=== PATIENT | female | born 1930 | race Caucasian/White ===

== ENCOUNTER 2016-10-18 20:33 | Emergency (ER) | payer OTHER ==
[~2016-10-18] VITALS: Ht 172.7 cm; Wt 49.9 kg
[~2016-10-18 20:33] MED LIST: ASCORBIC ACID500 M3 PO; ASPIR 8181 M1 PO; B COMPLETE1 EACH PO; B COMPLEX #11 EACH PO; BENADRYL50 MG PO; CALCITONIN-SAL3.8 ML NS; CALCIUM 500 +1 EACH PO; CALCIUM MAGNES1 EACH PO; CELEBREX100 MG PO; CENTRUM COMPLE1 EACH PO; CENTRUM SILVER1 EAC3 PO; CENTRUM SILVER1 EAC4 PO; CO Q-1050 MG PO; CORAL CALCIUM1 EAC2 PO; ENDOCET 5-3251 EACH PO; FIBER THERAPY0.52 GM PO; FIBER500 MG PO; FIBERCON625 MG PO; FISH OIL 1,0001 EAC7 PO; FISH OIL OMEGA1 EACH PO; FISH OIL SOFTG1 EAC2 PO; FLAX SEED OIL1 EACH PO; FLAXSEED OIL1000 M4 PO; FLAXSEED340 GM PO; FOLIC ACID0.4 MG PO; GAS FREE125 MG PO; GLUCOSAMINE &1 EAC1 PO; HYDROCODON-ACE1 EAC7 PO; HYDROXYCHLOROQ200 MG PO; LEVOTHYROXINE100 MCG PO; LEVOXYL100 MCG PO; LOMOTIL TABLET1 EACH PO; MACROBID100 MG PO; MAGNESIUM250 MG PO; MIACALCIN4 ML NS; MIRALAX17 GM PO; MIRALAX255 GM PO; OMEPRAZOLE40 M1 PO; OXYBUTYNIN CHLOR5 MG PO; PEPCID40 MG PO; PLAQUENIL200 MG PO; PRED FORTE100 DROP/5 LEFT EYE; PRILOSEC40 MG PO; SF56 GM DT; SLEEP AID25 M1 PO; TRAMADOL HCL50 MG PO; TYLENOL PM1 CAPLET PO; Tylenol Extra Streng PO; VITAMIN D-32000 UNI2 PO; VITAMIN D31000 UNI2 PO; ZINC30 MG PO
[2016-10-18] MEDS ORDERED: COLACE100 MG PO (23:03)
[2016-10-18] MEDS ORDERED: VICODIN 5-3001 EACH PO (23:03)
[2016-10-18 23:40] VITALS: BP 116/79
== END 2016-10-18 23:49 | disposition home or self-care (01) ==
LOC: EME → EDBD 20:33 → EME 23:49
DX: S22.20XA Unspecified fracture of sternum, initial encounter for closed fracture (principal); W17.89XA Other fall from one level to another, initial encounter; Z88.2 Allergy status to sulfonamides
CPT/HCPCS: 71250; 93005; 99281; 99284

== ENCOUNTER 2017-05-15 17:18 | Emergency (ER) | payer OTHER ==
[~2017-05-15] VITALS: Ht 167.6 cm; Wt 47.0 kg
[~2017-05-15 17:18] MED LIST changes: +COLACE100 MG PO; +VICODIN 5-3001 EACH PO
[2017-05-15 17:52] LABS: EOSINOPHIL (%) 0.2 % (0-5); HEMATOCRIT 31.8 % (36.0-46.0); IMMATURE GRANULOCYTE (%) 0.2 % (0.0-0.7); INSTRUMENT ABS NEUTROPHIL CT 3.8 K/uL; LYMPHOCYTE COUNT 0.2 K/uL (1.0-2.8); MCH 33.1 PG (29.0-34.0); MCV 100.3 FL (83-99); MEAN PLAT.VOLUME 9.4 uM^3 (9.5-12.4); MONOCYTE (%) 6.3 % (3-12); MONOCYTE COUNT 0.3 K/uL (0-0.8); NEUTROPHIL (%) 87.5 % (45-76); NEUTROPHIL COUNT 3.8 K/uL (1.8-6.4); PLATELET COUNT 134 K/uL (156-360); RBC DIS.WIDTH-CV 14.6 % (11.8-14.6); RBC DIS.WIDTH-SD 53.9 % (39-53); RED BLOOD COUNT 3.17 M/uL (3.80-5.20); WHITE BLOOD COUNT 4.3 K/uL (4.1-10.2)
[2017-05-15 17:57] LABS: PROTHROMBIN TIME 10.6 SEC (10.2-12.9)
[2017-05-15 17:59] LABS: PTT 26.5 SEC (25-37)
[2017-05-15 18:00] LABS: CHLORIDE 99 mEq/L (99-109); POTASSIUM 4.4 mEq/L (3.7-5.4); SODIUM 134 mEq/L (136-147)
[2017-05-15 18:02] LABS: GLUCOSE 104 mg/dL (70-99)
[2017-05-15 18:03] LABS: ANION GAP 11 MEQ/L (2-14)
[2017-05-15 18:04] LABS: TOTAL BILIRUBIN 0.3 mg/dL (0.0-1.0)
[2017-05-15 18:06] LABS: ALKALINE PHOSPHATASE 64 IU/L (3-129); GFR ESTIMATE (CALCULATED) > 59 mL/min/
[2017-05-15 18:07] LABS: UREA NITROGEN (BUN) 16 mg/dL (9-23)
[2017-05-15 18:08] LABS: DIRECT BILIRUBIN 0.1 mg/dL (0.0-0.3)
[2017-05-15 18:09] LABS: LIPASE 5 U/L (1.0-51.0)
[2017-05-15 18:12] LABS: TROP-I INTERPRETATION NEGATIVE; TROPONIN-I < 0.01 ng/mL (0.0-0.30)
[2017-05-15 19:09] LABS: ADD MIUA? YES; BILIRUBIN NEGATIVE; BLOOD NEGATIVE; COLOR AMBER ((YELLOW)); GLUCOSE (STRIP) NEGATIVE; KETONES NEGATIVE; LEUKOCYTES NEGATIVE; NITRITE NEGATIVE; PROTEIN (STRIP) 30; SPECIFIC GRAVITY 1.016 (1.000-1.030); UROBILINOGEN 0.2 MG/DL (0.2-1.0)
[2017-05-15 19:16] LABS: BACTERIA NONE SEEN /HPF; EPITHELIAL CELLS RARE /HPF; MUCUS TRACE /LPF; RED BLOOD CELLS 0-5 /HPF (0-5); UCUL ADDED? NO; WHITE BLOOD CELLS 0-5 /HPF (0-5)
[2017-05-15 22:42] VITALS: BP 113/70
== END 2017-05-15 22:44 | disposition home or self-care (01) ==
LOC: EME 17:18
PROVIDERS: Emergency Medicine
DX: R10.10 Upper abdominal pain, unspecified (principal); K44.9 Diaphragmatic hernia without obstruction or gangrene; E03.9 Hypothyroidism, unspecified; Z90.49 Acquired absence of other specified parts of digestive tract; Z87.891 Personal history of nicotine dependence; Z88.2 Allergy status to sulfonamides
CPT/HCPCS: 74177; 80048; 80076; 81003; 83690; 83880; 84484; 85025; 85610; 85730; 99281; 99284; J7030

== ENCOUNTER 2018-01-17 22:29 | Inpatient (IN) | payer OTHER ==
[~2018-01-17] VITALS: Ht 162.6 cm; Wt 51.0 kg
[2018-01-17 23:24] LABS: HEMATOCRIT 34.1 % (36.0-46.0); HEMOGLOBIN 11.9 G/DL (11.9-15.5); MCH 33.9 PG (29.0-34.0); MCHC 34.9 G/DL (30.0-36.0); MCV 97.2 FL (83-99); PLATELET COUNT 116 K/uL (156-360); RBC DIS.WIDTH-CV 14.6 % (11.8-14.6); RBC DIS.WIDTH-SD 52.1 % (39-53); RED BLOOD COUNT 3.51 M/uL (3.80-5.20); WHITE BLOOD COUNT 5.1 K/uL (4.1-10.2)
[2018-01-17 23:39] LABS: ALBUMIN 4.4 g/dL (3.2-4.8); CHLORIDE 100 mEq/L (99-109); POTASSIUM 3.9 mEq/L (3.7-5.4); SODIUM 139 mEq/L (136-147)
[2018-01-17 23:42] LABS: GLUCOSE 174 mg/dL (70-99); TOTAL PROTEIN 6.9 g/dL (6.4-8.3)
[2018-01-17 23:44] LABS: TOTAL BILIRUBIN 0.3 mg/dL (0.0-1.0)
[2018-01-17 23:45] LABS: ALKALINE PHOSPHATASE 72 IU/L (3-129)
[2018-01-17 23:46] LABS: CREATININE 0.8 mg/dL (0.6-1.3); GFR ESTIMATE (CALCULATED) > 59 mL/min/
[2018-01-17 23:47] LABS: AST (GOT) 28 IU/L (2-34); DIRECT BILIRUBIN 0.1 mg/dL (0.0-0.3); UREA NITROGEN (BUN) 25 mg/dL (9-23)
[2018-01-17 23:48] LABS: ALT (GPT) 27 IU/L (3-49)
[2018-01-17 23:49] LABS: LIPASE 55 U/L (1.0-51.0)
[2018-01-18 00:38] LABS: TROP-I INTERPRETATION NEGATIVE; TROPONIN-I < 0.01 ng/mL (0.0-0.30)
[2018-01-18] MEDS ORDERED: TYLENOL REGULA325 MG PO (07:23)
[2018-01-18] MEDS ORDERED: CALCIUM 600 +1 EAC1 PO (07:23)
[2018-01-18] MEDS ORDERED: NAMENDA5 MG PO (07:24)
[2018-01-18] MEDS ORDERED: B-COMPLEX-VITA1 EACH PO (07:24)
[2018-01-18] MEDS ORDERED: ASCORBIC ACID500 M3 PO (07:24)
[2018-01-18] MEDS ORDERED: CENTRUM SILVER1 EAC3 PO (07:24)
[2018-01-18] MEDS ORDERED: SYNTHROID100 MCG PO (07:25)
[2018-01-18] MEDS ORDERED: DITROPAN5 MG PO (07:25)
[2018-01-18] MEDS ORDERED: PROTONIX40 MG PO (07:25)
[2018-01-18] MEDS ORDERED: PREDNISONE1 MG PO (07:25)
[2018-01-18] MEDS ORDERED: FISH OIL 1,2001 EAC4 PO (07:26)
[2018-01-18] MEDS ORDERED: LOMOTIL TABLET1 EACH PO (07:26)
[2018-01-18] MEDS ORDERED: FLAX OIL1000 MG PO (07:26)
[2018-01-18] MEDS ORDERED: COLACE100 MG PO (07:27)
[2018-01-18] MEDS ORDERED: VITAMIN B-650 MG PO (07:28)
[2018-01-18 09:27] VITALS: BP 133/79
[2018-01-18 19:39] LABS: COMMENTS - BLOOD GASES A+C+; DEVICE VENT; FI02 60 %; MECHANICAL RATE 16 resp/min; MODE A/C; SITE RR; TIDAL VOLUME 500 ML; TOTAL RESP RATE 16 resp/min
[2018-01-18 19:40] LABS: BICARBONATE 27.7 mEq/L (22-26); CARBOXY HGB 1.2 % (0-5); METHEMOGLOBIN 1.1 % (0-1.5); PCO2 48 mm Hg (35-45); PEEP 8 CM/H20; PO2 343 mm Hg (80-100); pH 7.37 (7.35-7.45)
[2018-01-18 19:41] LABS: BASE EXCESS 1.7 mEq/L (-3 to +3)
[2018-01-18 20:30] VITALS: BP 131/89
[2018-01-18 21:01] VITALS: BP 113/77
[2018-01-18 22:01] VITALS: BP 109/65
[2018-01-18 22:20] LABS: HEMATOCRIT 41.4 % (36.0-46.0); HEMOGLOBIN 13.4 G/DL (11.9-15.5); MCH 32.7 PG (29.0-34.0); MCHC 32.4 G/DL (30.0-36.0); RBC DIS.WIDTH-CV 14.6 % (11.8-14.6); RBC DIS.WIDTH-SD 54.9 % (39-53)
[2018-01-18 22:22] LABS: CHLORIDE 98 MEQ/L (99-109); CREATININE 0.8 MG/DL (0.6-1.3); GFR ESTIMATE (CALCULATED) > 59 mL/min/; GLUCOSE 150 mg/dL (70-99); SODIUM 134 MEQ/L (136-147); TRIGLYCERIDES 50 MG/DL (Normal: <150); UREA NITROGEN (BUN) 22 mg/dL (9-23)
[2018-01-18 22:51] LABS: ABS NEUTROPHIL COUNT 7.3; ANISOCYTOSIS 1+; BAND NEUTROPHILS 22.2 % (0-8.0); EOSINOPHIL ABS CT 0; LYMPHOCYTES 3.7 % (15.0-45.0); MACROCYTES 1+; MONOCYTES 4.6 % (0-9.0); PLAT.SUFFICIENCY VERY DECREASED; SEG.NEUTROPHILS 69.5 % (46.0-76.0)
[2018-01-18 22:54] LABS: PLATELET COUNT 53 K/uL (156-360)
[2018-01-18 23:01] VITALS: BP 103/64
[2018-01-19] VITALS (23 sets, daily range): BP systolic 94–128; BP diastolic 52–76
[2018-01-19 05:23] LABS: MCH 33.9 PG (29.0-34.0); MCHC 34.1 G/DL (30.0-36.0); MCV 99.4 FL (83-99); RBC DIS.WIDTH-CV 14.8 % (11.8-14.6); RBC DIS.WIDTH-SD 54.2 % (39-53); WHITE BLOOD COUNT 7.1 K/uL (4.1-10.2)
[2018-01-19 05:25] LABS: HEMOGLOBIN 10.9 G/DL (11.9-15.5); PLATELET COUNT 135 K/uL (156-360); RED BLOOD COUNT 3.22 M/uL (3.80-5.20)
[2018-01-19 05:42] LABS: COMMENTS - BLOOD GASES C+NA; DEVICE 980 VENT; FI02 40 %; INSPIRATION TIME 0.9 seconds; MECHANICAL RATE 16 resp/min; MODE AC VC+; SITE LR; TOTAL RESP RATE 22 resp/min
[2018-01-19 05:43] LABS: TIDAL VOLUME 400 ML
[2018-01-19 05:43] LABS: ALBUMIN 3.1 G/DL (3.2-4.8); ALKALINE PHOSPHATASE 38 IU/L (3-129); ALT (GPT) 49 IU/L (3-49); AST (GOT) 45 IU/L (2-34); C-REACTIVE PROTEIN 73.2 MG/L (0-10); CHLORIDE 101 MEQ/L (99-109); CREATININE 0.7 MG/DL (0.6-1.3); GFR ESTIMATE (CALCULATED) > 59 mL/min/; MAGNESIUM 2.2 mg/dl (1.3-2.7); PHOSPHORUS 3.1 mg/dL (2.5-4.9); SODIUM 138 MEQ/L (136-147); TOTAL BILIRUBIN 0.4 MG/DL (0.0-1.0); TOTAL PROTEIN 4.9 G/DL (6.4-8.3); UREA NITROGEN (BUN) 23 mg/dL (9-23)
[2018-01-19 05:44] LABS: GLUCOSE 112 mg/dL (70-99)
[2018-01-19 05:45] LABS: CARBOXY HGB 2.2 % (0-5); PCO2 37 mm Hg (35-45); PEEP 8 CM/H20; PO2 188 mm Hg (80-100); pH 7.46 (7.35-7.45)
[2018-01-19 05:46] LABS: BASE EXCESS 2.5 mEq/L (-3 to +3); BICARBONATE 26.3 mEq/L (22-26); METHEMOGLOBIN 0.4 % (0-1.5)
[2018-01-19 06:36] LABS: BASOPHIL (%) 0.1 % (0-1); EOSINOPHIL (%) 0 % (0-5); IMMATURE GRANULOCYTE (%) 0.1 % (0.0-0.7); LYMPHOCYTE (%) 2.4 % (15-42); LYMPHOCYTE COUNT 0.2 K/uL (1.0-2.8); MONOCYTE (%) 6.7 % (3-12); MONOCYTE COUNT 0.5 K/uL (0-0.8); NEUTROPHIL (%) 90.7 % (45-76); NEUTROPHIL COUNT 6.4 K/uL (1.8-6.4)
[2018-01-19 06:37] LABS: PLAT.SUFFICIENCY DECREASED
[2018-01-19 07:42] LABS: THYROTROPIN (TSH) 1.3 MIU/L (0.4-5.5)
[2018-01-20] VITALS (14 sets, daily range): BP systolic 112–129; BP diastolic 63–75
[2018-01-20 10:04] LABS: CHLORIDE 103 mEq/L (99-109)
[2018-01-20 10:05] LABS: MAGNESIUM 1.9 mg/dL (1.3-2.7); POTASSIUM 3.5 mEq/L (3.7-5.4); SODIUM 138 mEq/L (136-147)
[2018-01-20 10:07] LABS: GLUCOSE 85 mg/dL (70-99)
[2018-01-20 10:10] LABS: CREATININE 0.5 mg/dL (0.6-1.3); GFR ESTIMATE (CALCULATED) > 59 mL/min/; PHOSPHORUS 1.8 mg/dL (2.5-4.9)
[2018-01-20 10:11] LABS: UREA NITROGEN (BUN) 18 mg/dL (9-23)
[2018-01-20 10:59] LABS: BASOPHIL (%) 0.1 % (0-1); EOSINOPHIL (%) 0 % (0-5); HEMATOCRIT 29.2 % (36.0-46.0); IMMATURE GRANULOCYTE (%) 0.3 % (0.0-0.7); LYMPHOCYTE COUNT 0.2 K/uL (1.0-2.8); MCH 33.6 PG (29.0-34.0); MCHC 34.2 G/DL (30.0-36.0); MONOCYTE (%) 5.5 % (3-12); MONOCYTE COUNT 0.4 K/uL (0-0.8); NEUTROPHIL (%) 91.1 % (45-76); NEUTROPHIL COUNT 6.9 K/uL (1.8-6.4); PLATELET COUNT 134 K/uL (156-360); RBC DIS.WIDTH-CV 15.2 % (11.8-14.6); RBC DIS.WIDTH-SD 54.1 % (39-53); RED BLOOD COUNT 2.98 M/uL (3.80-5.20); WHITE BLOOD COUNT 7.6 K/uL (4.1-10.2)
[2018-01-21] VITALS (21 sets, daily range): BP systolic 62–123; BP diastolic 44–81
[2018-01-21 05:56] LABS: BASOPHIL (%) 0.1 % (0-1); EOSINOPHIL (%) 0 % (0-5); HEMATOCRIT 32.9 % (36.0-46.0); HEMOGLOBIN 10.6 G/DL (11.9-15.5); IMMATURE GRANULOCYTE (%) 0.6 % (0.0-0.7); LYMPHOCYTE (%) 4.2 % (15-42); LYMPHOCYTE COUNT 0.5 K/uL (1.0-2.8); MCH 32.2 PG (29.0-34.0); MCHC 32.2 G/DL (30.0-36.0); MONOCYTE (%) 4.5 % (3-12); MONOCYTE COUNT 0.5 K/uL (0-0.8); NEUTROPHIL (%) 90.6 % (45-76); NEUTROPHIL COUNT 9.9 K/uL (1.8-6.4); RBC DIS.WIDTH-CV 15.2 % (11.8-14.6); RBC DIS.WIDTH-SD 56.4 % (39-53); RED BLOOD COUNT 3.29 M/uL (3.80-5.20); WHITE BLOOD COUNT 10.9 K/uL (4.1-10.2)
[2018-01-21 06:19] LABS: PLATELET COUNT 180 K/uL (156-360)
[2018-01-21 06:20] LABS: CHLORIDE 101 MEQ/L (99-109); CREATININE 0.5 MG/DL (0.6-1.3); GFR ESTIMATE (CALCULATED) > 59 mL/min/; GLUCOSE 75 mg/dL (70-99); MAGNESIUM 2.1 mg/dl (1.3-2.7); PHOSPHORUS 2.5 mg/dL (2.5-4.9); POTASSIUM 3.8 MEQ/L (3.7-5.4); PREALBUMIN 10.4 mg/dL (10-40); SODIUM 138 MEQ/L (136-147)
[2018-01-21 06:21] LABS: UREA NITROGEN (BUN) 29 mg/dL (9-23)
[2018-01-22] VITALS (14 sets, daily range): BP systolic 111–145; BP diastolic 60–82
[2018-01-22 06:03] LABS: CHLORIDE 106 MEQ/L (99-109); CREATININE 0.4 MG/DL (0.6-1.3); GFR ESTIMATE (CALCULATED) > 59 mL/min/; MAGNESIUM 2.2 mg/dl (1.3-2.7); PHOSPHORUS 2.3 mg/dL (2.5-4.9); POTASSIUM 4.2 MEQ/L (3.7-5.4); SODIUM 139 MEQ/L (136-147); UREA NITROGEN (BUN) 33 mg/dL (9-23)
[2018-01-22 06:14] LABS: GLUCOSE 162 mg/dL (70-99)
[2018-01-23 03:36] VITALS: BP 124/63
[2018-01-23 07:17] LABS: BASOPHIL (%) 0.2 % (0-1); EOSINOPHIL (%) 0.2 % (0-5); HEMATOCRIT 26.8 % (36.0-46.0); HEMOGLOBIN 9.3 G/DL (11.9-15.5); IMMATURE GRANULOCYTE (%) 2.1 % (0.0-0.7); LYMPHOCYTE (%) 5.2 % (15-42); LYMPHOCYTE COUNT 0.3 K/uL (1.0-2.8); MCH 33.7 PG (29.0-34.0); MCHC 34.7 G/DL (30.0-36.0); MCV 97.1 FL (83-99); MONOCYTE (%) 7.7 % (3-12); MONOCYTE COUNT 0.5 K/uL (0-0.8); NEUTROPHIL (%) 84.6 % (45-76); NEUTROPHIL COUNT 5.2 K/uL (1.8-6.4); PLATELET COUNT 158 K/uL (156-360); RBC DIS.WIDTH-SD 52.9 % (39-53); RED BLOOD COUNT 2.76 M/uL (3.80-5.20); WHITE BLOOD COUNT 6.1 K/uL (4.1-10.2)
[2018-01-23 07:40] LABS: CHLORIDE 108 MEQ/L (99-109); CREATININE 0.3 MG/DL (0.6-1.3); GFR ESTIMATE (CALCULATED) > 59 mL/min/; GLUCOSE 126 mg/dL (70-99); MAGNESIUM 1.9 mg/dl (1.3-2.7); PHOSPHORUS 1.7 mg/dL (2.5-4.9); SODIUM 141 MEQ/L (136-147); UREA NITROGEN (BUN) 26 mg/dL (9-23)
[2018-01-23 07:41] LABS: POTASSIUM 3.3 MEQ/L (3.7-5.4)
[2018-01-23 11:58] VITALS: BP 138/70
[2018-01-23 15:41] VITALS: BP 155/76
[2018-01-23 19:19] VITALS: BP 132/73
[2018-01-23 23:25] VITALS: BP 121/61
[2018-01-24 03:34] VITALS: BP 138/76
[2018-01-24 06:15] LABS: BASOPHIL (%) 0.4 % (0-1); EOSINOPHIL COUNT 0.1 K/uL (0-0.3); HEMOGLOBIN 10.2 G/DL (11.9-15.5); IMMATURE GRANULOCYTE (%) 4.1 % (0.0-0.7); LYMPHOCYTE (%) 4.4 % (15-42); LYMPHOCYTE COUNT 0.3 K/uL (1.0-2.8); MCH 32.8 PG (29.0-34.0); MCV 96.5 FL (83-99); MONOCYTE COUNT 0.6 K/uL (0-0.8); NEUTROPHIL (%) 82.1 % (45-76); NEUTROPHIL COUNT 5.6 K/uL (1.8-6.4); NRBC (%) 0.3 /100 WBC (0-0); PLATELET COUNT 150 K/uL (156-360); RBC DIS.WIDTH-CV 14.9 % (11.8-14.6); RBC DIS.WIDTH-SD 52.5 % (39-53); RED BLOOD COUNT 3.11 M/uL (3.80-5.20); WHITE BLOOD COUNT 6.9 K/uL (4.1-10.2)
[2018-01-24 06:34] LABS: ALBUMIN 2.3 G/DL (3.2-4.8); ALBUMIN 2.4 G/DL (3.2-4.8); ALKALINE PHOSPHATASE 57 IU/L (3-129); ALKALINE PHOSPHATASE 58 IU/L (3-129); CHLORIDE 105 MEQ/L (99-109); CHLORIDE 106 MEQ/L (99-109); CREATININE 0.3 MG/DL (0.6-1.3); DIRECT BILIRUBIN 0.1 mg/dL (0.0-0.3); GFR ESTIMATE (CALCULATED) > 59 mL/min/; GLUCOSE 99 mg/dL (70-99); MAGNESIUM 1.9 mg/dl (1.3-2.7); POTASSIUM 3.4 MEQ/L (3.7-5.4); POTASSIUM 3.5 MEQ/L (3.7-5.4); PREALBUMIN 13.9 mg/dL (10-40); SODIUM 138 MEQ/L (136-147); SODIUM 141 MEQ/L (136-147); TOTAL BILIRUBIN 0.4 MG/DL (0.0-1.0); TRIGLYCERIDES 130 MG/DL (Normal: <150); UREA NITROGEN (BUN) 19 mg/dL (9-23)
[2018-01-24 06:37] LABS: ALT (GPT) 115 IU/L (3-49); AST (GOT) 77 IU/L (2-34); PHOSPHORUS 2.4 mg/dL (2.5-4.9); TOTAL PROTEIN 4.1 G/DL (6.4-8.3)
[2018-01-24 06:38] LABS: ALT (GPT) 116 IU/L (3-49); AST (GOT) 78 IU/L (2-34); TOTAL PROTEIN 4.1 G/DL (6.4-8.3)
[2018-01-24 07:23] VITALS: BP 142/79
[2018-01-24 15:27] VITALS: BP 120/63
[2018-01-24 19:26] VITALS: BP 123/64
[2018-01-24 21:59] VITALS: BP 120/66
[2018-01-24 23:22] VITALS: BP 128/67
[2018-01-25 03:28] VITALS: BP 112/52
[2018-01-25 06:32] LABS: CHLORIDE 107 MEQ/L (99-109); CREATININE 0.3 MG/DL (0.6-1.3); GFR ESTIMATE (CALCULATED) > 59 mL/min/; GLUCOSE 114 mg/dL (70-99); MAGNESIUM 2.1 mg/dl (1.3-2.7); PHOSPHORUS 2.4 mg/dL (2.5-4.9); POTASSIUM 3.6 MEQ/L (3.7-5.4); SODIUM 139 MEQ/L (136-147); UREA NITROGEN (BUN) 23 mg/dL (9-23)
[2018-01-25 07:26] VITALS: BP 124/64
[2018-01-25 11:15] VITALS: BP 130/67
[2018-01-25 15:51] VITALS: BP 114/57
[2018-01-25 20:00] VITALS: BP 119/63
[2018-01-26 04:05] VITALS: BP 120/63
[2018-01-26 07:42] LABS: CHLORIDE 105 MEQ/L (99-109); CREATININE 0.3 MG/DL (0.6-1.3); GFR ESTIMATE (CALCULATED) > 59 mL/min/; GLUCOSE 106 mg/dL (70-99); PHOSPHORUS 3.1 mg/dL (2.5-4.9); POTASSIUM 4.3 MEQ/L (3.7-5.4); SODIUM 138 MEQ/L (136-147); UREA NITROGEN (BUN) 25 mg/dL (9-23)
[2018-01-26 08:39] VITALS: BP 129/68
[2018-01-26 15:42] VITALS: BP 127/65
[2018-01-26 19:46] VITALS: BP 143/64
[2018-01-27 01:43] VITALS: BP 128/73
[2018-01-27 06:33] LABS: CHLORIDE 103 MEQ/L (99-109); CREATININE 0.3 MG/DL (0.6-1.3); GFR ESTIMATE (CALCULATED) > 59 mL/min/; GLUCOSE 119 mg/dL (70-99); MAGNESIUM 1.9 mg/dl (1.3-2.7); PHOSPHORUS 3.4 mg/dL (2.5-4.9); POTASSIUM 4.7 MEQ/L (3.7-5.4); SODIUM 135 MEQ/L (136-147); UREA NITROGEN (BUN) 24 mg/dL (9-23)
[2018-01-27 07:59] VITALS: BP 123/66
[2018-01-27 15:10] VITALS: BP 129/69
[2018-01-28 00:19] VITALS: BP 121/65
[2018-01-28 06:13] LABS: BASOPHIL (%) 0.1 % (0-1); EOSINOPHIL (%) 1.1 % (0-5); EOSINOPHIL COUNT 0.1 K/uL (0-0.3); HEMATOCRIT 25.5 % (36.0-46.0); HEMOGLOBIN 8.8 G/DL (11.9-15.5); IMMATURE GRANULOCYTE (%) 1.3 % (0.0-0.7); LYMPHOCYTE (%) 4.3 % (15-42); LYMPHOCYTE COUNT 0.3 K/uL (1.0-2.8); MCH 32.8 PG (29.0-34.0); MCHC 34.5 G/DL (30.0-36.0); MCV 95.1 FL (83-99); MONOCYTE (%) 9.5 % (3-12); MONOCYTE COUNT 0.7 K/uL (0-0.8); NEUTROPHIL (%) 83.7 % (45-76); NEUTROPHIL COUNT 6.2 K/uL (1.8-6.4); PLATELET COUNT 176 K/uL (156-360); RBC DIS.WIDTH-CV 15.4 % (11.8-14.6); RBC DIS.WIDTH-SD 52.7 % (39-53); RED BLOOD COUNT 2.68 M/uL (3.80-5.20); WHITE BLOOD COUNT 7.4 K/uL (4.1-10.2)
[2018-01-28 06:37] LABS: CHLORIDE 102 MEQ/L (99-109); CREATININE 0.3 MG/DL (0.6-1.3); GFR ESTIMATE (CALCULATED) > 59 mL/min/; GLUCOSE 112 mg/dL (70-99); MAGNESIUM 1.8 mg/dl (1.3-2.7); POTASSIUM 4.4 MEQ/L (3.7-5.4); SODIUM 134 MEQ/L (136-147); UREA NITROGEN (BUN) 22 mg/dL (9-23)
[2018-01-28 06:41] LABS: PHOSPHORUS 4.7 mg/dL (2.5-4.9)
[2018-01-28 08:33] VITALS: BP 109/63
[2018-01-28 16:04] VITALS: BP 124/62
[2018-01-29 00:08] VITALS: BP 118/72
[2018-01-29 06:43] LABS: CHLORIDE 102 MEQ/L (99-109); CREATININE 0.3 MG/DL (0.6-1.3); GFR ESTIMATE (CALCULATED) > 59 mL/min/; GLUCOSE 95 mg/dL (70-99); MAGNESIUM 2.1 mg/dl (1.3-2.7); PHOSPHORUS 3.1 mg/dL (2.5-4.9); POTASSIUM 4.4 MEQ/L (3.7-5.4); SODIUM 135 MEQ/L (136-147); UREA NITROGEN (BUN) 27 mg/dL (9-23)
[2018-01-29 07:07] VITALS: BP 113/56
[2018-01-29 16:05] VITALS: BP 111/58
[2018-01-29 20:40] VITALS: BP 108/42
[2018-01-30 00:41] VITALS: BP 110/57
[2018-01-30 06:24] LABS: CHLORIDE 104 MEQ/L (99-109); CREATININE 0.3 MG/DL (0.6-1.3); GFR ESTIMATE (CALCULATED) > 59 mL/min/; GLUCOSE 111 mg/dL (70-99); MAGNESIUM 2.1 mg/dl (1.3-2.7); PHOSPHORUS 3.6 mg/dL (2.5-4.9); POTASSIUM 4.2 MEQ/L (3.7-5.4); SODIUM 137 MEQ/L (136-147); UREA NITROGEN (BUN) 27 mg/dL (9-23)
[2018-01-30 07:29] VITALS: BP 110/55
[2018-01-30 15:55] VITALS: BP 110/57
[2018-01-30 23:30] VITALS: BP 114/58
[2018-01-31 06:41] LABS: BASOPHIL (%) 0.3 % (0-1); EOSINOPHIL (%) 0.5 % (0-5); HEMATOCRIT 27.1 % (36.0-46.0); HEMOGLOBIN 9.1 G/DL (11.9-15.5); IMMATURE GRANULOCYTE (%) 0.9 % (0.0-0.7); LYMPHOCYTE (%) 4.3 % (15-42); LYMPHOCYTE COUNT 0.3 K/uL (1.0-2.8); MCH 32.4 PG (29.0-34.0); MCHC 33.6 G/DL (30.0-36.0); MCV 96.4 FL (83-99); MONOCYTE (%) 8.6 % (3-12); MONOCYTE COUNT 0.6 K/uL (0-0.8); NEUTROPHIL (%) 85.4 % (45-76); NEUTROPHIL COUNT 6.4 K/uL (1.8-6.4); PLATELET COUNT 211 K/uL (156-360); RBC DIS.WIDTH-CV 15.5 % (11.8-14.6); RBC DIS.WIDTH-SD 53.1 % (39-53); RED BLOOD COUNT 2.81 M/uL (3.80-5.20); WHITE BLOOD COUNT 7.5 K/uL (4.1-10.2)
[2018-01-31 08:11] VITALS: BP 112/53
[2018-01-31 09:24] LABS: ALBUMIN 2.5 G/DL (3.2-4.8); ALKALINE PHOSPHATASE 77 IU/L (3-129); ALT (GPT) 63 IU/L (3-49); AST (GOT) 65 IU/L (2-34); CHLORIDE 107 MEQ/L (99-109); CREATININE 0.3 MG/DL (0.6-1.3); DIRECT BILIRUBIN 0.1 mg/dL (0.0-0.3); GFR ESTIMATE (CALCULATED) > 59 mL/min/; GLUCOSE 124 mg/dL (70-99); MAGNESIUM 2.1 mg/dl (1.3-2.7); PHOSPHORUS 3.1 mg/dL (2.5-4.9); POTASSIUM 4.5 MEQ/L (3.7-5.4); SODIUM 137 MEQ/L (136-147); TOTAL BILIRUBIN 0.3 MG/DL (0.0-1.0); TOTAL PROTEIN 4.2 G/DL (6.4-8.3); TRIGLYCERIDES 47 MG/DL (Normal: <150); UREA NITROGEN (BUN) 30 mg/dL (9-23)
[2018-01-31 09:40] LABS: PREALBUMIN 10.3 mg/dL (10-40)
[2018-01-31 19:03] VITALS: BP 107/59
[2018-02-01] VITALS: BP 116/62
[2018-02-01 06:17] LABS: CHLORIDE 103 MEQ/L (99-109); CREATININE 0.3 MG/DL (0.6-1.3); GFR ESTIMATE (CALCULATED) > 59 mL/min/; GLUCOSE 106 mg/dL (70-99); MAGNESIUM 1.8 mg/dl (1.3-2.7); PHOSPHORUS 3.3 mg/dL (2.5-4.9); POTASSIUM 3.7 MEQ/L (3.7-5.4); SODIUM 135 MEQ/L (136-147); UREA NITROGEN (BUN) 21 mg/dL (9-23)
[2018-02-01 06:27] LABS: C-REACTIVE PROTEIN 30.4 MG/L (0-10)
[2018-02-01 06:31] LABS: HEMATOCRIT 28.3 % (36.0-46.0); HEMOGLOBIN 9.8 G/DL (11.9-15.5); MCHC 34.6 G/DL (30.0-36.0); MCV 95.3 FL (83-99); PLATELET COUNT 222 K/uL (156-360); RBC DIS.WIDTH-CV 15.6 % (11.8-14.6); RBC DIS.WIDTH-SD 52.9 % (39-53); RED BLOOD COUNT 2.97 M/uL (3.80-5.20); WHITE BLOOD COUNT 7.3 K/uL (4.1-10.2)
[2018-02-01 08:49] VITALS: BP 101/58
[2018-02-01 13:07] LABS: PTT 21.1 SEC (25-37)
[2018-02-02] VITALS: BP 104/54
[2018-02-02 07:09] LABS: CHLORIDE 105 MEQ/L (99-109); CREATININE 0.3 MG/DL (0.6-1.3); GFR ESTIMATE (CALCULATED) > 59 mL/min/; GLUCOSE 117 mg/dL (70-99); PHOSPHORUS 3.4 mg/dL (2.5-4.9); POTASSIUM 3.8 MEQ/L (3.7-5.4); SODIUM 137 MEQ/L (136-147); UREA NITROGEN (BUN) 25 mg/dL (9-23)
[2018-02-02 07:45] VITALS: BP 104/52
[2018-02-02 14:30] VITALS: BP 111/58
[2018-02-03 00:01] VITALS: BP 98/57
[2018-02-03 06:37] LABS: BASOPHIL (%) 0.5 % (0-1); EOSINOPHIL (%) 1.6 % (0-5); EOSINOPHIL COUNT 0.1 K/uL (0-0.3); HEMATOCRIT 26.2 % (36.0-46.0); HEMOGLOBIN 8.8 G/DL (11.9-15.5); IMMATURE GRANULOCYTE (%) 0.7 % (0.0-0.7); LYMPHOCYTE (%) 7.3 % (15-42); LYMPHOCYTE COUNT 0.3 K/uL (1.0-2.8); MCH 32.5 PG (29.0-34.0); MCHC 33.6 G/DL (30.0-36.0); MCV 96.7 FL (83-99); MONOCYTE (%) 8.2 % (3-12); MONOCYTE COUNT 0.4 K/uL (0-0.8); NEUTROPHIL (%) 81.7 % (45-76); NEUTROPHIL COUNT 3.6 K/uL (1.8-6.4); PLATELET COUNT 222 K/uL (156-360); RBC DIS.WIDTH-CV 15.8 % (11.8-14.6); RBC DIS.WIDTH-SD 54.6 % (39-53); RED BLOOD COUNT 2.71 M/uL (3.80-5.20); WHITE BLOOD COUNT 4.4 K/uL (4.1-10.2)
[2018-02-03 07:02] LABS: CHLORIDE 106 MEQ/L (99-109); CREATININE 0.3 MG/DL (0.6-1.3); GFR ESTIMATE (CALCULATED) > 59 mL/min/; GLUCOSE 105 mg/dL (70-99); MAGNESIUM 2.1 mg/dl (1.3-2.7); PHOSPHORUS 2.8 mg/dL (2.5-4.9); SODIUM 138 MEQ/L (136-147); UREA NITROGEN (BUN) 27 mg/dL (9-23)
[2018-02-03 07:30] VITALS: BP 101/58
[2018-02-03 17:12] VITALS: BP 133/62
[2018-02-03 20:49] VITALS: BP 102/57; BP 98/54
[2018-02-04 00:06] VITALS: BP 108/62
[2018-02-04 01:20] LABS: TROP-I INTERPRETATION NEGATIVE; TROPONIN-I < 0.01 ng/mL (0.0-0.30)
[2018-02-04 01:34] LABS: CREATINE KINASE 41 IU/L (1-294); TOTAL CK 41 IU/L (1-294)
[2018-02-04 01:39] LABS: CK-MB 1.6 ng/mL (0.0-4.9); CKMB RELATIVE INDEX 3.9 (0.0-3.9)
[2018-02-04 04:29] VITALS: BP 98/54
[2018-02-04 07:10] VITALS: BP 101/58
[2018-02-04 07:35] LABS: CHLORIDE 106 MEQ/L (99-109); CREATININE 0.3 MG/DL (0.6-1.3); GFR ESTIMATE (CALCULATED) > 59 mL/min/; GLUCOSE 115 mg/dL (70-99); SODIUM 137 MEQ/L (136-147); UREA NITROGEN (BUN) 27 mg/dL (9-23)
[2018-02-04 12:20] VITALS: BP 86/53
[2018-02-04 16:20] VITALS: BP 101/63
[2018-02-04 19:08] VITALS: BP 111/60
[2018-02-05 00:11] VITALS: BP 118/58
[2018-02-05 07:56] LABS: CHLORIDE 105 MEQ/L (99-109); CREATININE 0.3 MG/DL (0.6-1.3); GFR ESTIMATE (CALCULATED) > 59 mL/min/; GLUCOSE 104 mg/dL (70-99); MAGNESIUM 1.9 mg/dl (1.3-2.7); PHOSPHORUS 3.3 mg/dL (2.5-4.9); POTASSIUM 3.9 MEQ/L (3.7-5.4); SODIUM 138 MEQ/L (136-147); UREA NITROGEN (BUN) 30 mg/dL (9-23)
[2018-02-05 08:20] VITALS: BP 103/56
[2018-02-05 19:28] VITALS: BP 115/58
[2018-02-06 04:06] VITALS: BP 99/52
[2018-02-06 06:53] LABS: CHLORIDE 107 MEQ/L (99-109); CREATININE 0.3 MG/DL (0.6-1.3); GFR ESTIMATE (CALCULATED) > 59 mL/min/; GLUCOSE 114 mg/dL (70-99); MAGNESIUM 1.9 mg/dl (1.3-2.7); POTASSIUM 3.9 MEQ/L (3.7-5.4); SODIUM 138 MEQ/L (136-147); UREA NITROGEN (BUN) 26 mg/dL (9-23)
[2018-02-06 06:54] LABS: PHOSPHORUS 4.7 mg/dL (2.5-4.9)
[2018-02-06 07:45] VITALS: BP 124/60
[2018-02-06 16:00] VITALS: BP 103/50
[2018-02-06 19:05] VITALS: BP 100/52
[2018-02-06 23:00] VITALS: BP 97/52
[2018-02-07 06:40] LABS: BASOPHIL (%) 0.3 % (0-1); EOSINOPHIL (%) 3.3 % (0-5); EOSINOPHIL COUNT 0.1 K/uL (0-0.3); HEMATOCRIT 23.3 % (36.0-46.0); HEMOGLOBIN 7.8 G/DL (11.9-15.5); IMMATURE GRANULOCYTE (%) 0.9 % (0.0-0.7); LYMPHOCYTE (%) 9.9 % (15-42); LYMPHOCYTE COUNT 0.3 K/uL (1.0-2.8); MCH 32.5 PG (29.0-34.0); MCHC 33.5 G/DL (30.0-36.0); MCV 97.1 FL (83-99); MONOCYTE (%) 11.3 % (3-12); MONOCYTE COUNT 0.4 K/uL (0-0.8); NEUTROPHIL (%) 74.3 % (45-76); NEUTROPHIL COUNT 2.5 K/uL (1.8-6.4); PLATELET COUNT 178 K/uL (156-360); RBC DIS.WIDTH-CV 15.8 % (11.8-14.6); RBC DIS.WIDTH-SD 56.4 % (39-53); WHITE BLOOD COUNT 3.4 K/uL (4.1-10.2)
[2018-02-07 07:08] LABS: ALBUMIN 2.2 G/DL (3.2-4.8); ALKALINE PHOSPHATASE 99 IU/L (3-129); ALT (GPT) 54 IU/L (3-49); CHLORIDE 105 MEQ/L (99-109); CREATININE 0.3 MG/DL (0.6-1.3); GFR ESTIMATE (CALCULATED) > 59 mL/min/; GLUCOSE 109 mg/dL (70-99); POTASSIUM 4.1 MEQ/L (3.7-5.4); SODIUM 138 MEQ/L (136-147); TOTAL PROTEIN 3.8 G/DL (6.4-8.3); UREA NITROGEN (BUN) 26 mg/dL (9-23)
[2018-02-07 07:09] LABS: AST (GOT) 34 IU/L (2-34); TOTAL BILIRUBIN 0.7 MG/DL (0.0-1.0)
[2018-02-07 08:00] LABS: ALBUMIN 2.2 G/DL (3.2-4.8); ALKALINE PHOSPHATASE 93 IU/L (3-129); ALT (GPT) 57 IU/L (3-49); AST (GOT) 36 IU/L (2-34); DIRECT BILIRUBIN 0.1 mg/dL (0.0-0.3); MAGNESIUM 1.9 mg/dl (1.3-2.7); PREALBUMIN 7.4 mg/dL (10-40); TOTAL BILIRUBIN 0.3 MG/DL (0.0-1.0); TOTAL PROTEIN 3.8 G/DL (6.4-8.3); TRIGLYCERIDES 54 MG/DL (Normal: <150)
[2018-02-07 08:01] LABS: PHOSPHORUS 2.8 mg/dL (2.5-4.9)
[2018-02-07 08:19] LABS: THYROTROPIN (TSH) 13.3 MIU/L (0.4-5.5)
[2018-02-07 08:54] VITALS: BP 137/60
[2018-02-07 08:55] VITALS: BP 98/55
[2018-02-07 16:15] VITALS: BP 107/50
[2018-02-07 20:02] VITALS: BP 100/56
[2018-02-08 00:01] VITALS: BP 92/51
[2018-02-08 04:30] VITALS: BP 110/58
[2018-02-08 06:54] LABS: CHLORIDE 107 MEQ/L (99-109); CREATININE 0.3 MG/DL (0.6-1.3); GFR ESTIMATE (CALCULATED) > 59 mL/min/; GLUCOSE 109 mg/dL (70-99); MAGNESIUM 2.1 mg/dl (1.3-2.7); POTASSIUM 4.5 MEQ/L (3.7-5.4); SODIUM 140 MEQ/L (136-147); UREA NITROGEN (BUN) 32 mg/dL (9-23)
[2018-02-08 07:05] VITALS: BP 101/61
[2018-02-08 16:33] VITALS: BP 112/62
[2018-02-08 20:00] VITALS: BP 110/58
[2018-02-08 23:48] VITALS: BP 98/54
[2018-02-09 03:54] VITALS: BP 101/68
[2018-02-09 07:10] VITALS: BP 82/52
[2018-02-09 07:42] LABS: CHLORIDE 105 MEQ/L (99-109); CREATININE 0.2 MG/DL (0.6-1.3); GFR ESTIMATE (CALCULATED) > 59 mL/min/; GLUCOSE 109 mg/dL (70-99); PHOSPHORUS 3.1 mg/dL (2.5-4.9); POTASSIUM 4.6 MEQ/L (3.7-5.4); SODIUM 139 MEQ/L (136-147); UREA NITROGEN (BUN) 28 mg/dL (9-23)
[2018-02-09 09:40] VITALS: BP 115/58
[2018-02-09 16:01] VITALS: BP 106/52
[2018-02-09 19:00] VITALS: BP 83/48
[2018-02-10 04:01] VITALS: BP 100/53
[2018-02-10 07:06] LABS: CHLORIDE 104 MEQ/L (99-109); CREATININE 0.2 MG/DL (0.6-1.3); GFR ESTIMATE (CALCULATED) > 59 mL/min/; GLUCOSE 118 mg/dL (70-99); PHOSPHORUS 3.2 mg/dL (2.5-4.9); POTASSIUM 4.5 MEQ/L (3.7-5.4); SODIUM 138 MEQ/L (136-147); UREA NITROGEN (BUN) 29 mg/dL (9-23)
[2018-02-10 08:45] VITALS: BP 99/56
[2018-02-10 23:42] VITALS: BP 100/56
[2018-02-11 06:02] LABS: CHLORIDE 107 MEQ/L (99-109); CREATININE 0.3 MG/DL (0.6-1.3); GFR ESTIMATE (CALCULATED) > 59 mL/min/; GLUCOSE 116 mg/dL (70-99); MAGNESIUM 1.9 mg/dl (1.3-2.7); POTASSIUM 4.4 MEQ/L (3.7-5.4); SODIUM 138 MEQ/L (136-147); UREA NITROGEN (BUN) 30 mg/dL (9-23)
[2018-02-11 06:55] VITALS: BP 116/58
[2018-02-11 13:00] VITALS: BP 122/60
[2018-02-11 20:19] VITALS: BP 105/56
[2018-02-11 23:56] VITALS: BP 105/61
[2018-02-12 04:47] VITALS: BP 102/56
[2018-02-12 06:19] LABS: CHLORIDE 105 MEQ/L (99-109); CREATININE 0.3 MG/DL (0.6-1.3); GFR ESTIMATE (CALCULATED) > 59 mL/min/; GLUCOSE 114 mg/dL (70-99); MAGNESIUM 1.9 mg/dl (1.3-2.7); PHOSPHORUS 3.3 mg/dL (2.5-4.9); POTASSIUM 4.4 MEQ/L (3.7-5.4); SODIUM 138 MEQ/L (136-147); UREA NITROGEN (BUN) 21 mg/dL (9-23)
[2018-02-12 08:35] VITALS: BP 117/67
[2018-02-12 19:52] VITALS: BP 102/58
[2018-02-13 00:02] VITALS: BP 110/58
[2018-02-13 06:49] LABS: BASOPHIL (%) 0.3 % (0-1); EOSINOPHIL (%) 2.4 % (0-5); EOSINOPHIL COUNT 0.1 K/uL (0-0.3); HEMATOCRIT 25.7 % (36.0-46.0); HEMOGLOBIN 8.4 G/DL (11.9-15.5); IMMATURE GRANULOCYTE (%) 0.8 % (0.0-0.7); LYMPHOCYTE (%) 7.2 % (15-42); LYMPHOCYTE COUNT 0.3 K/uL (1.0-2.8); MCH 31.6 PG (29.0-34.0); MCHC 32.7 G/DL (30.0-36.0); MCV 96.6 FL (83-99); MONOCYTE (%) 10.4 % (3-12); MONOCYTE COUNT 0.4 K/uL (0-0.8); NEUTROPHIL (%) 78.9 % (45-76); PLATELET COUNT 212 K/uL (156-360); RBC DIS.WIDTH-CV 15.5 % (11.8-14.6); RBC DIS.WIDTH-SD 54.6 % (39-53); RED BLOOD COUNT 2.66 M/uL (3.80-5.20); WHITE BLOOD COUNT 3.8 K/uL (4.1-10.2)
[2018-02-13 07:11] LABS: CHLORIDE 104 MEQ/L (99-109); CREATININE 0.3 MG/DL (0.6-1.3); GFR ESTIMATE (CALCULATED) > 59 mL/min/; GLUCOSE 104 mg/dL (70-99); MAGNESIUM 1.9 mg/dl (1.3-2.7); PHOSPHORUS 3.3 mg/dL (2.5-4.9); POTASSIUM 4.3 MEQ/L (3.7-5.4); SODIUM 137 MEQ/L (136-147); UREA NITROGEN (BUN) 20 mg/dL (9-23)
[2018-02-13 08:07] VITALS: BP 95/53
[2018-02-13 19:46] VITALS: BP 121/68
[2018-02-13 22:59] VITALS: BP 99/54
[2018-02-14 06:15] LABS: BASOPHIL (%) 0.3 % (0-1); EOSINOPHIL COUNT 0.1 K/uL (0-0.3); HEMATOCRIT 25.2 % (36.0-46.0); HEMOGLOBIN 8.3 G/DL (11.9-15.5); IMMATURE GRANULOCYTE (%) 0.6 % (0.0-0.7); LYMPHOCYTE (%) 9.2 % (15-42); LYMPHOCYTE COUNT 0.3 K/uL (1.0-2.8); MCH 31.7 PG (29.0-34.0); MCHC 32.9 G/DL (30.0-36.0); MCV 96.2 FL (83-99); MONOCYTE (%) 11.6 % (3-12); MONOCYTE COUNT 0.4 K/uL (0-0.8); NEUTROPHIL (%) 75.3 % (45-76); NEUTROPHIL COUNT 2.5 K/uL (1.8-6.4); PLATELET COUNT 212 K/uL (156-360); RBC DIS.WIDTH-CV 15.5 % (11.8-14.6); RBC DIS.WIDTH-SD 54.4 % (39-53); RED BLOOD COUNT 2.62 M/uL (3.80-5.20); WHITE BLOOD COUNT 3.4 K/uL (4.1-10.2)
[2018-02-14 06:49] LABS: ALBUMIN 2.5 G/DL (3.2-4.8); ALT (GPT) 54 IU/L (3-49); AST (GOT) 39 IU/L (2-34); CHLORIDE 104 MEQ/L (99-109); CREATININE 0.3 MG/DL (0.6-1.3); DIRECT BILIRUBIN 0.1 mg/dL (0.0-0.3); GFR ESTIMATE (CALCULATED) > 59 mL/min/; GLUCOSE 115 mg/dL (70-99); MAGNESIUM 1.9 mg/dl (1.3-2.7); PHOSPHORUS 4.2 mg/dL (2.5-4.9); POTASSIUM 4.2 MEQ/L (3.7-5.4); PREALBUMIN 9.3 mg/dL (10-40); SODIUM 137 MEQ/L (136-147); TRIGLYCERIDES 69 MG/DL (Normal: <150); UREA NITROGEN (BUN) 20 mg/dL (9-23)
[2018-02-14 06:51] LABS: ALKALINE PHOSPHATASE 130 IU/L (3-129); TOTAL BILIRUBIN 0.3 MG/DL (0.0-1.0); TOTAL PROTEIN 4.6 G/DL (6.4-8.3)
[2018-02-14 07:35] VITALS: BP 109/51
[2018-02-14 12:24] VITALS: BP 112/58
[2018-02-14 20:33] VITALS: BP 104/51
[2018-02-14 23:56] VITALS: BP 115/57
[2018-02-15 03:34] VITALS: BP 86/51; BP 98/55
[2018-02-15 06:18] LABS: HEMATOCRIT 27.8 % (36.0-46.0); HEMOGLOBIN 9.1 G/DL (11.9-15.5); MCH 31.7 PG (29.0-34.0); MCHC 32.7 G/DL (30.0-36.0); MCV 96.9 FL (83-99); PLATELET COUNT 230 K/uL (156-360); RBC DIS.WIDTH-CV 15.4 % (11.8-14.6); RBC DIS.WIDTH-SD 54.4 % (39-53); RED BLOOD COUNT 2.87 M/uL (3.80-5.20); WHITE BLOOD COUNT 5.8 K/uL (4.1-10.2)
[2018-02-15 06:43] LABS: CHLORIDE 106 MEQ/L (99-109); CREATININE 0.4 MG/DL (0.6-1.3); GFR ESTIMATE (CALCULATED) > 59 mL/min/; GLUCOSE 162 mg/dL (70-99); PHOSPHORUS 3.8 mg/dL (2.5-4.9); POTASSIUM 4.4 MEQ/L (3.7-5.4); SODIUM 139 MEQ/L (136-147); UREA NITROGEN (BUN) 31 mg/dL (9-23)
[2018-02-15 06:47] LABS: ABS NEUTROPHIL COUNT 5.6; ANISOCYTOSIS 1+; EOSINOPHIL ABS CT 0; LYMPHOCYTES 1.7 % (15.0-45.0); MACROCYTES 1+; MICROCYTOSIS 1+; MONOCYTES 0.9 % (0-9.0); SEG.NEUTROPHILS 54.4 % (46.0-76.0)
[2018-02-15 07:26] VITALS: BP 107/55
[2018-02-15 11:03] LABS: THYROTROPIN (TSH) 10.2 MIU/L (0.4-5.5)
[2018-02-15 11:50] VITALS: BP 108/55
[2018-02-15 15:50] VITALS: BP 104/51
[2018-02-15 19:25] VITALS: BP 110/60
[2018-02-15 23:37] VITALS: BP 115/63
[2018-02-16 03:59] VITALS: BP 108/60
[2018-02-16 07:01] VITALS: BP 107/57
[2018-02-16 07:22] LABS: CHLORIDE 110 MEQ/L (99-109); CREATININE 0.3 MG/DL (0.6-1.3); GFR ESTIMATE (CALCULATED) > 59 mL/min/; GLUCOSE 128 mg/dL (70-99); MAGNESIUM 1.8 mg/dl (1.3-2.7); POTASSIUM 4.1 MEQ/L (3.7-5.4); SODIUM 140 MEQ/L (136-147); UREA NITROGEN (BUN) 31 mg/dL (9-23)
[2018-02-16 07:23] LABS: PHOSPHORUS 2.2 mg/dL (2.5-4.9)
[2018-02-16 08:19] LABS: ALKALINE PHOSPHATASE 147 IU/L (3-129); C-REACTIVE PROTEIN 261.2 MG/L (0-10)
[2018-02-16 15:27] VITALS: BP 119/54
[2018-02-17] VITALS (9 sets, daily range): BP systolic 108–135; BP diastolic 59–77
[2018-02-17 05:43] LABS: HEMATOCRIT 24.3 % (36.0-46.0); HEMOGLOBIN 7.8 G/DL (11.9-15.5); MCH 31.1 PG (29.0-34.0); MCHC 32.1 G/DL (30.0-36.0); MCV 96.8 FL (83-99); PLATELET COUNT 228 K/uL (156-360); RBC DIS.WIDTH-CV 15.8 % (11.8-14.6); RED BLOOD COUNT 2.51 M/uL (3.80-5.20); WHITE BLOOD COUNT 7.9 K/uL (4.1-10.2)
[2018-02-17 06:15] LABS: CHLORIDE 109 MEQ/L (99-109); CREATININE 0.3 MG/DL (0.6-1.3); GFR ESTIMATE (CALCULATED) > 59 mL/min/; GLUCOSE 147 mg/dL (70-99); MAGNESIUM 1.8 mg/dl (1.3-2.7); PHOSPHORUS 2.7 mg/dL (2.5-4.9); POTASSIUM 3.6 MEQ/L (3.7-5.4); SODIUM 143 MEQ/L (136-147); UREA NITROGEN (BUN) 30 mg/dL (9-23)
[2018-02-17 06:53] LABS: BASOPHIL (%) 0.1 % (0-1); EOSINOPHIL (%) 0.1 % (0-5); IMMATURE GRANULOCYTE (%) 0.9 % (0.0-0.7); LYMPHOCYTE (%) 4.1 % (15-42); LYMPHOCYTE COUNT 0.3 K/uL (1.0-2.8); MONOCYTE (%) 7.1 % (3-12); MONOCYTE COUNT 0.6 K/uL (0-0.8); NEUTROPHIL (%) 87.7 % (45-76); NEUTROPHIL COUNT 6.9 K/uL (1.8-6.4); PLAT.SUFFICIENCY ADEQUATE
[2018-02-17 18:18] LABS: HEMATOCRIT 25.3 % (36.0-46.0); HEMOGLOBIN 8.1 G/DL (11.9-15.5); MCV 96.6 FL (83-99)
[2018-02-17 18:38] LABS: TROP-I INTERPRETATION NEGATIVE; TROPONIN-I 0.08 ng/mL (0.0-0.30)
[2018-02-18] VITALS (8 sets, daily range): BP systolic 95–129; BP diastolic 49–70
[2018-02-18 05:53] LABS: CHLORIDE 114 MEQ/L (99-109); CREATININE 0.3 MG/DL (0.6-1.3); GFR ESTIMATE (CALCULATED) > 59 mL/min/; GLUCOSE 126 mg/dL (70-99); MAGNESIUM 1.8 mg/dl (1.3-2.7); PHOSPHORUS 3.5 mg/dL (2.5-4.9); POTASSIUM 3.8 MEQ/L (3.7-5.4); SODIUM 145 MEQ/L (136-147); UREA NITROGEN (BUN) 33 mg/dL (9-23)
[2018-02-18 07:15] LABS: ALBUMIN 2.3 G/DL (3.2-4.8); C-REACTIVE PROTEIN 195.1 MG/L (0-10); TOTAL PROTEIN 4.7 G/DL (6.4-8.3)
[2018-02-18 07:22] LABS: ALKALINE PHOSPHATASE 257 IU/L (3-129); ALT (GPT) 212 IU/L (3-49); AST (GOT) 217 IU/L (2-34); TOTAL BILIRUBIN 0.7 MG/DL (0.0-1.0)
[2018-02-18 08:37] LABS: HEMATOCRIT 27.5 % (36.0-46.0); HEMOGLOBIN 9.1 G/DL (11.9-15.5); MCH 30.4 PG (29.0-34.0); MCHC 33.1 G/DL (30.0-36.0); PLATELET COUNT 230 K/uL (156-360); RBC DIS.WIDTH-CV 18.6 % (11.8-14.6); RBC DIS.WIDTH-SD 62.9 % (39-53); RED BLOOD COUNT 2.99 M/uL (3.80-5.20)
[2018-02-19 04:00] VITALS: BP 125/75
[2018-02-19 05:55] LABS: ALBUMIN 2.2 G/DL (3.2-4.8); ALT (GPT) 249 IU/L (3-49); AST (GOT) 192 IU/L (2-34); DIRECT BILIRUBIN 0.2 mg/dL (0.0-0.3); TOTAL BILIRUBIN 0.6 MG/DL (0.0-1.0); TOTAL PROTEIN 4.3 G/DL (6.4-8.3)
[2018-02-19 06:01] LABS: ALKALINE PHOSPHATASE 336 IU/L (3-129)
[2018-02-19 07:22] VITALS: BP 116/63
[2018-02-19 07:41] VITALS: BP 112/81
[2018-02-19 12:00] VITALS: BP 113/62
[2018-02-19 15:45] VITALS: BP 106/68
[2018-02-19 20:00] VITALS: BP 135/77
[2018-02-20 00:08] VITALS: BP 128/72
[2018-02-20 04:21] VITALS: BP 128/70
[2018-02-20 06:12] LABS: BASOPHIL (%) 0.3 % (0-1); EOSINOPHIL (%) 1.3 % (0-5); EOSINOPHIL COUNT 0.1 K/uL (0-0.3); HEMATOCRIT 28.9 % (36.0-46.0); HEMOGLOBIN 9.2 G/DL (11.9-15.5); IMMATURE GRANULOCYTE (%) 2.7 % (0.0-0.7); LYMPHOCYTE (%) 4.3 % (15-42); LYMPHOCYTE COUNT 0.4 K/uL (1.0-2.8); MCH 29.5 PG (29.0-34.0); MCHC 31.8 G/DL (30.0-36.0); MCV 92.6 FL (83-99); MONOCYTE (%) 8.2 % (3-12); MONOCYTE COUNT 0.7 K/uL (0-0.8); NEUTROPHIL (%) 83.2 % (45-76); NEUTROPHIL COUNT 7.3 K/uL (1.8-6.4); PLATELET COUNT 220 K/uL (156-360); RBC DIS.WIDTH-CV 17.3 % (11.8-14.6); RBC DIS.WIDTH-SD 58.4 % (39-53); RED BLOOD COUNT 3.12 M/uL (3.80-5.20); WHITE BLOOD COUNT 8.8 K/uL (4.1-10.2)
[2018-02-20 06:37] LABS: ALBUMIN 2.1 G/DL (3.2-4.8); ALKALINE PHOSPHATASE 311 IU/L (3-129); ALT (GPT) 142 IU/L (3-49); CHLORIDE 108 MEQ/L (99-109); CREATININE 0.3 MG/DL (0.6-1.3); GFR ESTIMATE (CALCULATED) > 59 mL/min/; POTASSIUM 3.5 MEQ/L (3.7-5.4); SODIUM 146 MEQ/L (136-147); TOTAL BILIRUBIN 0.6 MG/DL (0.0-1.0); TOTAL PROTEIN 4.1 G/DL (6.4-8.3); UREA NITROGEN (BUN) 28 mg/dL (9-23)
[2018-02-20 06:39] LABS: AST (GOT) 66 IU/L (2-34); GLUCOSE 88 mg/dL (70-99)
[2018-02-20 08:05] VITALS: BP 128/79
[2018-02-20 12:00] VITALS: BP 124/83
[2018-02-20 14:50] VITALS: BP 102/60
[2018-02-20 20:00] VITALS: BP 107/58
[2018-02-21] VITALS (7 sets, daily range): BP systolic 94–117; BP diastolic 52–71
[2018-02-21 08:59] LABS: HEMATOCRIT 31.7 % (36.0-46.0); HEMOGLOBIN 10.4 G/DL (11.9-15.5); MCH 30.1 PG (29.0-34.0); MCHC 32.8 G/DL (30.0-36.0); MCV 91.6 FL (83-99); PLATELET COUNT 263 K/uL (156-360); RBC DIS.WIDTH-SD 56.9 % (39-53); RED BLOOD COUNT 3.46 M/uL (3.80-5.20); WHITE BLOOD COUNT 7.8 K/uL (4.1-10.2)
[2018-02-21 09:28] LABS: ALBUMIN 2.2 G/DL (3.2-4.8); ALKALINE PHOSPHATASE 272 IU/L (3-129); ALT (GPT) 103 IU/L (3-49); AST (GOT) 54 IU/L (2-34); C-REACTIVE PROTEIN 147.6 MG/L (0-10); CHLORIDE 107 MEQ/L (99-109); CREATININE 0.4 MG/DL (0.6-1.3); GFR ESTIMATE (CALCULATED) > 59 mL/min/; GLUCOSE 84 mg/dL (70-99); SODIUM 147 MEQ/L (136-147); THYROTROPIN (TSH) 21.6 MIU/L (0.4-5.5); TOTAL BILIRUBIN 0.7 MG/DL (0.0-1.0); TOTAL PROTEIN 4.5 G/DL (6.4-8.3); UREA NITROGEN (BUN) 24 mg/dL (9-23)
[2018-02-21 09:29] LABS: PREALBUMIN 4.3 mg/dL (10-40)
[2018-02-22 04:01] VITALS: BP 110/52
[2018-02-22 08:39] VITALS: BP 115/59
[2018-02-22 11:43] VITALS: BP 99/49
[2018-02-22 16:10] VITALS: BP 107/56
[2018-02-22 18:44] LABS: TYPE OF FLUID PLEURAL
[2018-02-22 19:31] VITALS: BP 99/58
[2018-02-22 19:36] LABS: BODY FLUID GLUCOSE 110 MG/DL; BODY FLUID LDH 88 IU/L; BODY FLUID PROTEIN < 3.0 G/DL
[2018-02-22 19:47] LABS: APPEARANCE CLEAR-YELLOW; BODY FLUID EOSINOPHILS 0 % (0-25); BODY FLUID RBC'S < 1000 /MM^3 (0-100); BODY FLUID WBC'S 229 /MM^3 (0-500); MONONUCLEAR WBC'S 35 %; POLYNUCLEAR WBC'S 65 % (0-25)
[2018-02-23 00:17] VITALS: BP 98/53
[2018-02-23 03:49] VITALS: BP 103/54
[2018-02-23 06:15] LABS: ABSOLUTE RETICULOCYTE CT. 0.1 M/uL (0.02-0.08); IMM.RETIC FRACTION 9.4 % (3-19); RETIC HGB EQUIVALENT 28.9 (28-36); RETICULOCYTE COUNT 1.6 % (0.5-1.8)
[2018-02-23 06:34] LABS: IRON 17 MCG/DL (35-150); MAGNESIUM 1.7 mg/dl (1.3-2.7); PHOSPHORUS 2.7 mg/dL (2.5-4.9); TRANSFERRIN (TIBC) 143.4 mg/dL (215-380); TRANSFERRIN SATUR. 12 % (20-55)
[2018-02-23 08:00] LABS: FERRITIN 237 NG/ML (10-291)
[2018-02-23 08:06] LABS: FOLIC ACID (FOLATE) 12.2 NG/ML (5.0-22.0)
[2018-02-23 08:38] VITALS: BP 106/56
[2018-02-23 09:11] LABS: ALKALINE PHOSPHATASE 217 IU/L (3-129); ALT (GPT) 55 IU/L (3-49); CHLORIDE 105 MEQ/L (99-109); CREATININE 0.4 MG/DL (0.6-1.3); GFR ESTIMATE (CALCULATED) > 59 mL/min/; GLUCOSE 100 mg/dL (70-99); POTASSIUM 3.2 MEQ/L (3.7-5.4); SODIUM 145 MEQ/L (136-147); TOTAL PROTEIN 3.9 G/DL (6.4-8.3); UREA NITROGEN (BUN) 20 mg/dL (9-23)
[2018-02-23 09:18] LABS: AST (GOT) 24 IU/L (2-34); TOTAL BILIRUBIN 0.4 MG/DL (0.0-1.0)
[2018-02-23 12:53] VITALS: BP 120/60
[2018-02-23 14:44] LABS: C DIFF TOXIN NEGATIVE (NEGATIVE)
[2018-02-23 16:31] VITALS: BP 118/67
[2018-02-23 20:30] VITALS: BP 102/57
[2018-02-24 00:17] VITALS: BP 109/58
[2018-02-24 03:19] VITALS: BP 96/51
[2018-02-24 07:37] LABS: BASOPHIL (%) 0.4 % (0-1); EOSINOPHIL (%) 1.4 % (0-5); EOSINOPHIL COUNT 0.1 K/uL (0-0.3); HEMATOCRIT 32.4 % (36.0-46.0); HEMOGLOBIN 10.4 G/DL (11.9-15.5); IMMATURE GRANULOCYTE (%) 2.1 % (0.0-0.7); LYMPHOCYTE (%) 4.9 % (15-42); LYMPHOCYTE COUNT 0.5 K/uL (1.0-2.8); MCH 29.7 PG (29.0-34.0); MCHC 32.1 G/DL (30.0-36.0); MCV 92.6 FL (83-99); MONOCYTE (%) 5.1 % (3-12); MONOCYTE COUNT 0.5 K/uL (0-0.8); NEUTROPHIL (%) 86.1 % (45-76); NEUTROPHIL COUNT 7.9 K/uL (1.8-6.4); PLATELET COUNT 270 K/uL (156-360); RBC DIS.WIDTH-CV 16.4 % (11.8-14.6); RBC DIS.WIDTH-SD 55.8 % (39-53); WHITE BLOOD COUNT 9.2 K/uL (4.1-10.2)
[2018-02-24 07:42] LABS: ALBUMIN 2.1 G/DL (3.2-4.8); ALKALINE PHOSPHATASE 185 IU/L (3-129); ALT (GPT) 44 IU/L (3-49); AST (GOT) 21 IU/L (2-34); CHLORIDE 105 MEQ/L (99-109); CREATININE 0.4 MG/DL (0.6-1.3); GFR ESTIMATE (CALCULATED) > 59 mL/min/; GLUCOSE 94 mg/dL (70-99); POTASSIUM 3.2 MEQ/L (3.7-5.4); SODIUM 144 MEQ/L (136-147); TOTAL BILIRUBIN 0.4 MG/DL (0.0-1.0); UREA NITROGEN (BUN) 17 mg/dL (9-23)
[2018-02-24 08:25] VITALS: BP 105/50
[2018-02-24 09:44] LABS: MAGNESIUM 1.6 mg/dl (1.3-2.7)
[2018-02-24] MEDS ORDERED: DRONABINOL2.5 MG PO (12:02)
[2018-02-24] MEDS ORDERED: DUONEB 2.5-0.5 M3 ML AEROSOL (12:02)
[2018-02-24] MEDS ORDERED: NYSTATIN15 GM TP (12:02)
[2018-02-24] MEDS ORDERED: METAMUCIL PACK3.4 GM PO (12:02)
[2018-02-24] MEDS ORDERED: Tums,OsCal PO (12:02)
[2018-02-24] MEDS ORDERED: METOPROLOL TART75 MG PO (12:02)
[2018-02-24] MEDS ORDERED: MYCOSTATIN 100,60 ML PO (12:02)
[2018-02-24 12:07] VITALS: BP 120/59
[2018-02-24 16:13] VITALS: BP 96/55
[2018-02-24 21:00] VITALS: BP 97/50
[2018-02-25 00:03] VITALS: BP 101/52
[2018-02-25 03:50] VITALS: BP 102/80
[2018-02-25 07:00] LABS: BASOPHIL (%) 0.3 % (0-1); EOSINOPHIL (%) 0.9 % (0-5); EOSINOPHIL COUNT 0.1 K/uL (0-0.3); HEMATOCRIT 31.2 % (36.0-46.0); HEMOGLOBIN 9.8 G/DL (11.9-15.5); IMMATURE GRANULOCYTE (%) 1.7 % (0.0-0.7); LYMPHOCYTE (%) 5.1 % (15-42); LYMPHOCYTE COUNT 0.5 K/uL (1.0-2.8); MCHC 31.4 G/DL (30.0-36.0); MCV 92.3 FL (83-99); MONOCYTE (%) 6.2 % (3-12); MONOCYTE COUNT 0.6 K/uL (0-0.8); NEUTROPHIL (%) 85.8 % (45-76); NEUTROPHIL COUNT 7.6 K/uL (1.8-6.4); PLATELET COUNT 272 K/uL (156-360); RBC DIS.WIDTH-CV 16.2 % (11.8-14.6); RBC DIS.WIDTH-SD 54.8 % (39-53); RED BLOOD COUNT 3.38 M/uL (3.80-5.20); WHITE BLOOD COUNT 8.8 K/uL (4.1-10.2)
[2018-02-25 07:24] LABS: ALBUMIN 2.1 G/DL (3.2-4.8); ALKALINE PHOSPHATASE 172 IU/L (3-129); ALT (GPT) 37 IU/L (3-49); AST (GOT) 20 IU/L (2-34); CHLORIDE 105 MEQ/L (99-109); CREATININE 0.3 MG/DL (0.6-1.3); GFR ESTIMATE (CALCULATED) > 59 mL/min/; GLUCOSE 96 mg/dL (70-99); POTASSIUM 3.7 MEQ/L (3.7-5.4); SODIUM 143 MEQ/L (136-147); TOTAL BILIRUBIN 0.4 MG/DL (0.0-1.0); TOTAL PROTEIN 4.1 G/DL (6.4-8.3); UREA NITROGEN (BUN) 18 mg/dL (9-23)
[2018-02-25 08:09] VITALS: BP 87/54
[2018-02-25 15:12] VITALS: BP 95/64
== END 2018-02-25 15:27 | DRG 989 ==
LOC: EME 22:29 → EDOF 01-18 04:22 → 4WEST 01-18 04:22 → 4EAST 01-18 04:22 → 2EAST 01-18 04:22 → ENRESERV 01-18 04:23 → 4EAST 01-18 09:10 → ENRESERV 01-18 19:17 → 4WEST 01-18 20:19 → CANRESERV 01-21 13:21 → ENRESERV 01-21 13:21 → 4WEST 01-22 11:12 → ENRESERV 01-22 11:14 → 2EAST 01-22 14:39 → ENRESERV 02-17 18:51 → 4EAST 02-17 20:01 → ENRESERV 02-20 11:33 → 2EAST 02-20 14:23 → ENPENDDIS 02-25 09:30 → 2EAST 02-25 15:27
PROVIDERS: Emergency Medicine; Hospitalist; Internal Medicine Pulmonary Disease; Physician Assistant; Physician Assistant Medical; Radiology Diagnostic Radiology; Specialist; Student in an Organized Health Care Education/Training Program; Surgery
PROC: 0W0F4ZZ Alteration of Abdominal Wall, Percutaneous Endoscopic Approach (ICD-10-PCS; principal; 2018-01-18)
DX: K56.609 Unspecified intestinal obstruction, unspecified as to partial versus complete obstruction (principal); R33.9 Retention of urine, unspecified; I10 Essential (primary) hypertension; I25.10 Atherosclerotic heart disease of native coronary artery without angina pectoris; I25.2 Old myocardial infarction; E03.9 Hypothyroidism, unspecified
CPT/HCPCS: 32555; 36600; 71045; 71046; 71250; 71275; 74018; 74019; 74176; 74177; 74220; 74270; 76705; 76937; 76942; 80048; 80053; 80076; 82248; 82330; 82550; 82553; 82607; 82728; 82746; 82803; 82945; 82948; 83540; 83605; 83615 91; 83690; 83735; 83880; 84075; 84100; 84134; 84145 90; 84157; 84439; 84443; 84466; 84478; 84481; 84484; 84540; 84630 90; 85014; 85018; 85025; 85027; 85046; 85610; 85730; 86140; 86850; 86900; 86901; 86920; 87070; 87075; 87205; 87493; 87641; 88108; 88302; 88305; 88307; 89051; 93005; 93306; 94002; 94003; 94640; 94640 76; 94760; 94799; 97530 GO; 97530 GP; 99202; 99281; 99285; A6214; C1729; C1753; C1769; C9113; J0131; J0330; J1100; J1160; J1170; J1720; J1940; J2405; J2543; J2704; J2765; J2997; J3010; J3475; J3480; J7030; J7050; J7120; J7643; P9016; P9047; Q0167; S0020; S0074

== ENCOUNTER 2018-02-27 00:01 | Inpatient (IN) | payer OTHER ==
[~2018-02-27] VITALS: Ht 152.4 cm; Wt 43.8 kg
[~2018-02-27 00:01] MED LIST changes: +B-COMPLEX-VITA1 EACH PO; +CALCIUM 600 +1 EAC1 PO; +DITROPAN5 MG PO; +DRONABINOL2.5 MG PO; +DUONEB 2.5-0.5 M3 ML AEROSOL; +FISH OIL 1,2001 EAC4 PO; +FLAX OIL1000 MG PO; +METAMUCIL PACK3.4 GM PO; +METOPROLOL TART75 MG PO; +MYCOSTATIN 100,60 ML PO; +NAMENDA5 MG PO; +NYSTATIN15 GM TP; +PREDNISONE1 MG PO; +PROTONIX40 MG PO; +SYNTHROID100 MCG PO; +TYLENOL REGULA325 MG PO; +Tums,OsCal PO; +VITAMIN B-650 MG PO
[2018-02-27 01:26] LABS: ALBUMIN 2.8 g/dL (3.2-4.8); CHLORIDE 99 mEq/L (99-109); POTASSIUM 4.1 mEq/L (3.7-5.4); SODIUM 142 mEq/L (136-147)
[2018-02-27 01:28] LABS: GLUCOSE 109 mg/dL (70-99); TOTAL PROTEIN 5.4 g/dL (6.4-8.3)
[2018-02-27 01:30] LABS: TOTAL BILIRUBIN 0.5 mg/dL (0.0-1.0)
[2018-02-27 01:32] LABS: ALKALINE PHOSPHATASE 205 IU/L (3-129); CREATININE 0.7 mg/dL (0.6-1.3); GFR ESTIMATE (CALCULATED) > 59 mL/min/
[2018-02-27 01:34] LABS: AST (GOT) 24 IU/L (2-34); HEMATOCRIT 37.2 % (36.0-46.0); MCH 30.3 PG (29.0-34.0); MCHC 33.1 G/DL (30.0-36.0); MCV 91.6 FL (83-99); RBC DIS.WIDTH-CV 16.3 % (11.8-14.6); RBC DIS.WIDTH-SD 54.5 % (39-53)
[2018-02-27 01:35] LABS: ALT (GPT) 37 IU/L (3-49); HEMOGLOBIN 12.3 G/DL (11.9-15.5); LIPASE 6 U/L (1.0-51.0); PLATELET COUNT 368 K/uL (156-360); RED BLOOD COUNT 4.06 M/uL (3.80-5.20)
[2018-02-27 01:38] LABS: TROP-I INTERPRETATION NEGATIVE; TROPONIN-I 0.02 ng/mL (0.0-0.30); UREA NITROGEN (BUN) 29 mg/dL (9-23)
[2018-02-27 08:02] VITALS: BP 104/58
[2018-02-27 09:00] LABS: GASTRIC OCCULT BLD. POSITIVE
[2018-02-27 15:00] VITALS: BP 111/68
[2018-02-27 23:21] VITALS: BP 103/59
[2018-02-28 06:59] LABS: HEMATOCRIT 31.9 % (36.0-46.0); MCHC 30.7 G/DL (30.0-36.0); MCV 94.4 FL (83-99); PLATELET COUNT 316 K/uL (156-360); RBC DIS.WIDTH-CV 16.5 % (11.8-14.6); RBC DIS.WIDTH-SD 56.8 % (39-53); RED BLOOD COUNT 3.38 M/uL (3.80-5.20)
[2018-02-28 07:00] VITALS: BP 122/61
[2018-02-28 07:00] LABS: HEMOGLOBIN 9.8 G/DL (11.9-15.5)
[2018-02-28 07:37] LABS: ALBUMIN 2.3 G/DL (3.2-4.8); ALKALINE PHOSPHATASE 146 IU/L (3-129); ALT (GPT) 21 IU/L (3-49); AST (GOT) 15 IU/L (2-34); CHLORIDE 104 MEQ/L (99-109); CREATININE 0.4 MG/DL (0.6-1.3); GFR ESTIMATE (CALCULATED) > 59 mL/min/; POTASSIUM 3.5 MEQ/L (3.7-5.4); SODIUM 146 MEQ/L (136-147); TOTAL BILIRUBIN 0.4 MG/DL (0.0-1.0); TOTAL PROTEIN 4.2 G/DL (6.4-8.3); UREA NITROGEN (BUN) 23 mg/dL (9-23)
[2018-02-28 07:40] LABS: GLUCOSE 59 mg/dL (70-99)
[2018-02-28 15:00] VITALS: BP 109/58
[2018-02-28 17:12] LABS: HEMOGLOBIN 9.3 G/DL (11.9-15.5); MCV 94.3 FL (83-99)
[2018-02-28 22:59] VITALS: BP 107/58
[2018-03-01 06:44] VITALS: BP 124/65
[2018-03-01 06:44] LABS: HEMATOCRIT 32.8 % (36.0-46.0); HEMOGLOBIN 10.1 G/DL (11.9-15.5); MCH 29.3 PG (29.0-34.0); MCHC 30.8 G/DL (30.0-36.0); MCV 95.1 FL (83-99); PLATELET COUNT 325 K/uL (156-360); RBC DIS.WIDTH-CV 16.7 % (11.8-14.6); RBC DIS.WIDTH-SD 58.2 % (39-53); RED BLOOD COUNT 3.45 M/uL (3.80-5.20); WHITE BLOOD COUNT 8.3 K/uL (4.1-10.2)
[2018-03-01 07:08] LABS: ALBUMIN 2.3 G/DL (3.2-4.8); ALKALINE PHOSPHATASE 133 IU/L (3-129); ALT (GPT) 22 IU/L (3-49); AST (GOT) 20 IU/L (2-34); CHLORIDE 105 MEQ/L (99-109); CREATININE 0.4 MG/DL (0.6-1.3); GFR ESTIMATE (CALCULATED) > 59 mL/min/; POTASSIUM 3.8 MEQ/L (3.7-5.4); SODIUM 145 MEQ/L (136-147); TOTAL BILIRUBIN 0.4 MG/DL (0.0-1.0); TOTAL PROTEIN 4.4 G/DL (6.4-8.3); UREA NITROGEN (BUN) 22 mg/dL (9-23)
[2018-03-01 07:19] LABS: GLUCOSE 47 mg/dL (70-99)
[2018-03-01 15:04] VITALS: BP 125/71
[2018-03-02 00:26] VITALS: BP 118/55
[2018-03-02 06:45] VITALS: BP 122/66
[2018-03-02 08:14] LABS: ALBUMIN 2.1 G/DL (3.2-4.8); ALKALINE PHOSPHATASE 116 IU/L (3-129); ALT (GPT) 19 IU/L (3-49); AST (GOT) 18 IU/L (2-34); CHLORIDE 108 MEQ/L (99-109); CREATININE 0.4 MG/DL (0.6-1.3); GFR ESTIMATE (CALCULATED) > 59 mL/min/; SODIUM 147 MEQ/L (136-147); THYROTROPIN (TSH) 44.5 MIU/L (0.4-5.5); TOTAL BILIRUBIN 0.4 MG/DL (0.0-1.0); UREA NITROGEN (BUN) 14 mg/dL (9-23)
[2018-03-02 08:16] LABS: GLUCOSE 136 mg/dL (70-99)
[2018-03-02 09:07] LABS: BASOPHIL (%) 0.3 % (0-1); EOSINOPHIL (%) 0.7 % (0-5); HEMATOCRIT 30.5 % (36.0-46.0); HEMOGLOBIN 9.7 G/DL (11.9-15.5); IMMATURE GRANULOCYTE (%) 1.6 % (0.0-0.7); LYMPHOCYTE COUNT 0.4 K/uL (1.0-2.8); MCH 29.5 PG (29.0-34.0); MCHC 31.8 G/DL (30.0-36.0); MCV 92.7 FL (83-99); MONOCYTE (%) 7.6 % (3-12); MONOCYTE COUNT 0.5 K/uL (0-0.8); NEUTROPHIL (%) 83.8 % (45-76); NEUTROPHIL COUNT 5.2 K/uL (1.8-6.4); PLATELET COUNT 331 K/uL (156-360); RBC DIS.WIDTH-CV 16.7 % (11.8-14.6); RBC DIS.WIDTH-SD 56.3 % (39-53); RED BLOOD COUNT 3.29 M/uL (3.80-5.20); WHITE BLOOD COUNT 6.2 K/uL (4.1-10.2)
[2018-03-02 15:15] VITALS: BP 120/69
[2018-03-02 23:10] VITALS: BP 115/64
[2018-03-03 06:55] VITALS: BP 122/67
[2018-03-03 08:30] LABS: CHLORIDE 110 MEQ/L (99-109); CREATININE 0.3 MG/DL (0.6-1.3); GFR ESTIMATE (CALCULATED) > 59 mL/min/; GLUCOSE 129 mg/dL (70-99); POTASSIUM 2.7 MEQ/L (3.7-5.4); SODIUM 149 MEQ/L (136-147); UREA NITROGEN (BUN) 8 mg/dL (9-23)
[2018-03-03 15:00] VITALS: BP 125/63
[2018-03-04 06:00] VITALS: BP 112/70
[2018-03-04 06:14] LABS: HEMATOCRIT 32.5 % (36.0-46.0); HEMOGLOBIN 10.1 G/DL (11.9-15.5); MCH 28.5 PG (29.0-34.0); MCHC 31.1 G/DL (30.0-36.0); MCV 91.8 FL (83-99); PLATELET COUNT 281 K/uL (156-360); RBC DIS.WIDTH-CV 16.9 % (11.8-14.6); RBC DIS.WIDTH-SD 56.7 % (39-53); RED BLOOD COUNT 3.54 M/uL (3.80-5.20); WHITE BLOOD COUNT 5.5 K/uL (4.1-10.2)
[2018-03-04 06:42] LABS: ALBUMIN 1.9 G/DL (3.2-4.8); ALKALINE PHOSPHATASE 117 IU/L (3-129); ALT (GPT) 16 IU/L (3-49); AST (GOT) 19 IU/L (2-34); CHLORIDE 111 MEQ/L (99-109); CREATININE 0.3 MG/DL (0.6-1.3); GFR ESTIMATE (CALCULATED) > 59 mL/min/; GLUCOSE 125 mg/dL (70-99); SODIUM 146 MEQ/L (136-147); TOTAL PROTEIN 3.9 G/DL (6.4-8.3); UREA NITROGEN (BUN) 6 mg/dL (9-23)
[2018-03-04 06:43] LABS: TOTAL BILIRUBIN 0.3 MG/DL (0.0-1.0)
[2018-03-04 07:20] VITALS: BP 129/77
[2018-03-04 17:08] VITALS: BP 120/61
[2018-03-05 01:08] VITALS: BP 107/59
[2018-03-05 06:15] LABS: HEMATOCRIT 29.1 % (36.0-46.0); HEMOGLOBIN 9.3 G/DL (11.9-15.5); MCH 29.5 PG (29.0-34.0); MCV 92.4 FL (83-99); PLATELET COUNT 253 K/uL (156-360); RBC DIS.WIDTH-CV 17.2 % (11.8-14.6); RBC DIS.WIDTH-SD 57.1 % (39-53); RED BLOOD COUNT 3.15 M/uL (3.80-5.20); WHITE BLOOD COUNT 6.5 K/uL (4.1-10.2)
[2018-03-05 06:36] LABS: ALBUMIN 1.8 G/DL (3.2-4.8); ALKALINE PHOSPHATASE 105 IU/L (3-129); ALT (GPT) 16 IU/L (3-49); AST (GOT) 21 IU/L (2-34); CHLORIDE 109 MEQ/L (99-109); CREATININE 0.3 MG/DL (0.6-1.3); GFR ESTIMATE (CALCULATED) > 59 mL/min/; GLUCOSE 102 mg/dL (70-99); POTASSIUM 3.1 MEQ/L (3.7-5.4); SODIUM 146 MEQ/L (136-147); TOTAL BILIRUBIN 0.3 MG/DL (0.0-1.0); TOTAL PROTEIN 3.8 G/DL (6.4-8.3); UREA NITROGEN (BUN) 6 mg/dL (9-23)
[2018-03-05 07:25] VITALS: BP 112/72
[2018-03-05 17:14] VITALS: BP 120/72
[2018-03-05 22:47] VITALS: BP 101/58
[2018-03-06 06:58] VITALS: BP 111/72
[2018-03-06 15:22] VITALS: BP 140/72
[2018-03-06 18:49] LABS: C DIFF TOXIN NEGATIVE (NEGATIVE)
[2018-03-07 00:15] VITALS: BP 101/58
[2018-03-07 06:56] VITALS: BP 135/86
[2018-03-07 15:40] VITALS: BP 113/65
[2018-03-08 00:52] VITALS: BP 96/53
[2018-03-08 05:45] LABS: HEMATOCRIT 26.9 % (36.0-46.0); HEMOGLOBIN 8.4 G/DL (11.9-15.5); MCH 29.3 PG (29.0-34.0); MCHC 31.2 G/DL (30.0-36.0); MCV 93.7 FL (83-99); PLATELET COUNT 205 K/uL (156-360); RBC DIS.WIDTH-CV 18.1 % (11.8-14.6); RBC DIS.WIDTH-SD 58.2 % (39-53); RED BLOOD COUNT 2.87 M/uL (3.80-5.20); WHITE BLOOD COUNT 6.4 K/uL (4.1-10.2)
[2018-03-08 06:17] LABS: ALBUMIN 1.9 G/DL (3.2-4.8); ALKALINE PHOSPHATASE 117 IU/L (3-129); ALT (GPT) 14 IU/L (3-49); AST (GOT) 23 IU/L (2-34); CHLORIDE 102 MEQ/L (99-109); CREATININE 0.3 MG/DL (0.6-1.3); GFR ESTIMATE (CALCULATED) > 59 mL/min/; GLUCOSE 85 mg/dL (70-99); POTASSIUM 3.8 MEQ/L (3.7-5.4); SODIUM 137 MEQ/L (136-147); TOTAL BILIRUBIN 0.4 MG/DL (0.0-1.0); TOTAL PROTEIN 3.8 G/DL (6.4-8.3); UREA NITROGEN (BUN) 11 mg/dL (9-23)
[2018-03-08 06:45] VITALS: BP 110/65
[2018-03-08 13:40] LABS: GLUCOSE 99 mg/dL (70-99)
[2018-03-08 14:55] VITALS: BP 120/83
[2018-03-08 23:08] VITALS: BP 105/67
[2018-03-09 07:00] VITALS: BP 109/60
[2018-03-09 15:55] VITALS: BP 110/60
[2018-03-09 23:53] VITALS: BP 101/50
[2018-03-10 06:14] LABS: HEMATOCRIT 25.4 % (36.0-46.0); HEMOGLOBIN 8.1 G/DL (11.9-15.5); MCH 29.3 PG (29.0-34.0); MCHC 31.9 G/DL (30.0-36.0); PLATELET COUNT 193 K/uL (156-360); RBC DIS.WIDTH-CV 19.4 % (11.8-14.6); RED BLOOD COUNT 2.76 M/uL (3.80-5.20); WHITE BLOOD COUNT 5.2 K/uL (4.1-10.2)
[2018-03-10 06:50] VITALS: BP 117/59
[2018-03-10 15:25] VITALS: BP 112/61
[2018-03-11 00:45] VITALS: BP 97/55
[2018-03-11 06:51] VITALS: BP 103/56
[2018-03-11 07:21] LABS: ALBUMIN 2.1 G/DL (3.2-4.8); ALKALINE PHOSPHATASE 142 IU/L (3-129); ALT (GPT) 16 IU/L (3-49); AST (GOT) 26 IU/L (2-34); CHLORIDE 101 MEQ/L (99-109); CREATININE 0.3 MG/DL (0.6-1.3); GFR ESTIMATE (CALCULATED) > 59 mL/min/; GLUCOSE 108 mg/dL (70-99); POTASSIUM 3.9 MEQ/L (3.7-5.4); SODIUM 134 MEQ/L (136-147); TOTAL BILIRUBIN 0.4 MG/DL (0.0-1.0); TOTAL PROTEIN 4.2 G/DL (6.4-8.3); UREA NITROGEN (BUN) 9 mg/dL (9-23)
[2018-03-11 07:25] LABS: HEMATOCRIT 25.8 % (36.0-46.0); HEMOGLOBIN 8.4 G/DL (11.9-15.5); MCH 30.1 PG (29.0-34.0); MCHC 32.6 G/DL (30.0-36.0); MCV 92.5 FL (83-99); PLATELET COUNT 195 K/uL (156-360); RBC DIS.WIDTH-CV 20.3 % (11.8-14.6); RBC DIS.WIDTH-SD 63.2 % (39-53); RED BLOOD COUNT 2.79 M/uL (3.80-5.20); WHITE BLOOD COUNT 4.7 K/uL (4.1-10.2)
[2018-03-11 15:26] VITALS: BP 115/68
[2018-03-11 23:12] VITALS: BP 84/53
[2018-03-11 23:14] VITALS: BP 108/52
[2018-03-12 06:55] VITALS: BP 95/55
[2018-03-12 06:59] LABS: HEMATOCRIT 29.5 % (36.0-46.0); HEMOGLOBIN 9.2 G/DL (11.9-15.5); MCHC 31.2 G/DL (30.0-36.0); MCV 93.1 FL (83-99); PLATELET COUNT 202 K/uL (156-360); RBC DIS.WIDTH-CV 20.9 % (11.8-14.6); RBC DIS.WIDTH-SD 67.3 % (39-53); RED BLOOD COUNT 3.17 M/uL (3.80-5.20); WHITE BLOOD COUNT 5.1 K/uL (4.1-10.2)
[2018-03-12 07:22] LABS: ALBUMIN 2.5 G/DL (3.2-4.8); ALKALINE PHOSPHATASE 169 IU/L (3-129); ALT (GPT) 19 IU/L (3-49); AST (GOT) 33 IU/L (2-34); CHLORIDE 100 MEQ/L (99-109); CREATININE 0.3 MG/DL (0.6-1.3); GFR ESTIMATE (CALCULATED) > 59 mL/min/; GLUCOSE 101 mg/dL (70-99); POTASSIUM 4.4 MEQ/L (3.7-5.4); SODIUM 134 MEQ/L (136-147); TOTAL BILIRUBIN 0.5 MG/DL (0.0-1.0); TOTAL PROTEIN 4.9 G/DL (6.4-8.3); UREA NITROGEN (BUN) 9 mg/dL (9-23)
[2018-03-12 15:20] VITALS: BP 107/59
[2018-03-12 23:17] VITALS: BP 115/61
[2018-03-13 06:37] LABS: HEMOGLOBIN 7.4 G/DL (11.9-15.5); MCHC 32.2 G/DL (30.0-36.0); MCV 93.1 FL (83-99); PLATELET COUNT 177 K/uL (156-360); RBC DIS.WIDTH-CV 21.5 % (11.8-14.6)
[2018-03-13 06:38] LABS: RED BLOOD COUNT 2.47 M/uL (3.80-5.20)
[2018-03-13 07:13] VITALS: BP 106/53
[2018-03-13 16:34] VITALS: BP 105/51
[2018-03-14 00:39] VITALS: BP 93/52
[2018-03-14 06:17] LABS: HEMATOCRIT 24.1 % (36.0-46.0); HEMOGLOBIN 7.7 G/DL (11.9-15.5); MCH 29.8 PG (29.0-34.0); MCV 93.4 FL (83-99); PLATELET COUNT 180 K/uL (156-360); RBC DIS.WIDTH-CV 22.1 % (11.8-14.6); RBC DIS.WIDTH-SD 73.5 % (39-53); RED BLOOD COUNT 2.58 M/uL (3.80-5.20); WHITE BLOOD COUNT 3.8 K/uL (4.1-10.2)
[2018-03-14 08:12] VITALS: BP 98/62
[2018-03-14 15:30] VITALS: BP 103/56
[2018-03-14 22:02] VITALS: BP 92/55
[2018-03-14 22:25] VITALS: BP 95/54
[2018-03-14 23:28] VITALS: BP 120/62
[2018-03-15] VITALS (9 sets, daily range): BP systolic 102–143; BP diastolic 55–72
[2018-03-15 06:36] LABS: HEMATOCRIT 33.4 % (36.0-46.0); MCH 29.4 PG (29.0-34.0); MCHC 32.3 G/DL (30.0-36.0); PLATELET COUNT 163 K/uL (156-360); RBC DIS.WIDTH-CV 19.9 % (11.8-14.6); RBC DIS.WIDTH-SD 60.4 % (39-53)
[2018-03-15 06:37] LABS: HEMOGLOBIN 10.8 G/DL (11.9-15.5); RED BLOOD COUNT 3.67 M/uL (3.80-5.20)
[2018-03-15 07:45] LABS: ALBUMIN 2.3 G/DL (3.2-4.8); ALKALINE PHOSPHATASE 154 IU/L (3-129); ALT (GPT) 18 IU/L (3-49); AST (GOT) 30 IU/L (2-34); CHLORIDE 99 MEQ/L (99-109); CREATININE 0.3 MG/DL (0.6-1.3); GFR ESTIMATE (CALCULATED) > 59 mL/min/; GLUCOSE 99 mg/dL (70-99); POTASSIUM 3.8 MEQ/L (3.7-5.4); SODIUM 134 MEQ/L (136-147); THYROTROPIN (TSH) 46.3 MIU/L (0.4-5.5); TOTAL PROTEIN 4.6 G/DL (6.4-8.3); UREA NITROGEN (BUN) 9 mg/dL (9-23)
[2018-03-15 07:46] LABS: TOTAL BILIRUBIN 0.7 MG/DL (0.0-1.0)
[2018-03-16 06:49] LABS: HEMATOCRIT 33.8 % (36.0-46.0); HEMOGLOBIN 11.1 G/DL (11.9-15.5); MCH 29.9 PG (29.0-34.0); MCHC 32.8 G/DL (30.0-36.0); MCV 91.1 FL (83-99); PLATELET COUNT 160 K/uL (156-360); RBC DIS.WIDTH-CV 20.6 % (11.8-14.6); RBC DIS.WIDTH-SD 65.4 % (39-53); RED BLOOD COUNT 3.71 M/uL (3.80-5.20); WHITE BLOOD COUNT 4.1 K/uL (4.1-10.2)
[2018-03-16 07:08] VITALS: BP 99/54
[2018-03-16 07:20] LABS: ALBUMIN 2.5 G/DL (3.2-4.8); ALKALINE PHOSPHATASE 146 IU/L (3-129); ALT (GPT) 17 IU/L (3-49); AST (GOT) 25 IU/L (2-34); CHLORIDE 96 MEQ/L (99-109); CREATININE 0.3 MG/DL (0.6-1.3); GFR ESTIMATE (CALCULATED) > 59 mL/min/; GLUCOSE 112 mg/dL (70-99); POTASSIUM 4.1 MEQ/L (3.7-5.4); SODIUM 133 MEQ/L (136-147); TOTAL PROTEIN 4.6 G/DL (6.4-8.3); UREA NITROGEN (BUN) 11 mg/dL (9-23)
[2018-03-16 07:21] LABS: TOTAL BILIRUBIN 0.5 MG/DL (0.0-1.0)
== END 2018-03-16 12:00 | DRG 389 ==
LOC: EME 00:01 → 5EAST 05:00 → EDOF 05:00 → ENRESERV 05:14 → 5EAST 07:25 → ENPENDDIS 03-16 11:00 → 5EAST 03-16 12:00
PROVIDERS: Emergency Medicine; Family Medicine; Internal Medicine; Physician Assistant Medical
PROC: 30233P1 Transfusion of Nonautologous Frozen Red Cells into Peripheral Vein, Percutaneous Approach (ICD-10-PCS; principal; 2018-03-14)
DX: K56.609 Unspecified intestinal obstruction, unspecified as to partial versus complete obstruction (principal); K21.0 Gastro-esophageal reflux disease with esophagitis; I48.91 Unspecified atrial fibrillation; E03.9 Hypothyroidism, unspecified; I95.9 Hypotension, unspecified; K92.2 Gastrointestinal hemorrhage, unspecified; F03.90 Unspecified dementia, unspecified severity, without behavioral disturbance, psychotic disturbance, mood disturbance, and anxiety; E87.6 Hypokalemia; E16.2 Hypoglycemia, unspecified; E46 Unspecified protein-calorie malnutrition; R32 Unspecified urinary incontinence; Z87.891 Personal history of nicotine dependence; K94.22 Gastrostomy infection; Y83.8 Other surgical procedures as the cause of abnormal reaction of the patient, or of later complication, without mention of misadventure at the time of the procedure; B96.89 Other specified bacterial agents as the cause of diseases classified elsewhere; Z68.1 Body mass index [BMI] 19.9 or less, adult; M40.204 Unspecified kyphosis, thoracic region; D50.0 Iron deficiency anemia secondary to blood loss (chronic)
CPT/HCPCS: 71045; 71046; 74018; 74019; 74021; 74177; 80048; 80053; 82271; 82272; 82948; 83605; 83690; 83880; 84439; 84443; 84484; 84999; 85014; 85018; 85025; 85027; 86850; 86860; 86870; 86880; 86885; 86900; 86901; 86904; 86906; 86920; 87040; 87070; 87075; 87077; 87106; 87186; 87205; 87493; 92526 GN; 92610 GN; 93005; 94760; 94799; 97530 GP; 99281; 99285; C9113; J0692; J1170; J1650; J2405; J2543; J3480; J7030; J7042; J7050; P9016; S0028